=== PATIENT | female | born 1995 | race Caucasian/White ===

== ENCOUNTER 2024-01-01 17:55 | Emergency (ER) | payer SELFPAY ==
[~2024-01-01] VITALS: Ht 160 cm; Wt 64.4 kg
[2024-01-01 18:06] VITALS: BP 108/72; PULSE 73; RESP 20; TEMP 98; O2SAT 100
== END 2024-01-01 18:11 | disposition left against medical advice (07) ==
LOC: MED 17:55
DX: R10.13 Epigastric pain (principal); Z53.21 Procedure and treatment not carried out due to patient leaving prior to being seen by health care provider
CPT/HCPCS: 99281